=== PATIENT | male | born 1970 | race Two or more races ===

== ENCOUNTER 2025-02-25 19:53 | Inpatient (IN) | payer MEDICAID ==
[~2025-02-25] VITALS: Ht 182.9 cm; Wt 54.7 kg
[2025-02-25 20:00] VITALS: BP 121/77; TEMP 97.5; O2SAT 100
[2025-02-25] MEDS ORDERED: ACETAMINOPHEN 325 MG TABLET PO PRN (23:00)
[2025-02-25] MEDS ORDERED: ONDANSETRON HCL/PF 4 MG/2 ML VIAL IVP PRN (23:00)
[2025-02-25] MEDS ORDERED: MAGNESIUM HYDROXIDE 30 ML UDC PO PRN (23:00)
[2025-02-25] MEDS ORDERED: MAG HYDROX/AL HYDROX/SIMETH 30 ML UDC PO PRN (23:00)
[2025-02-26] MEDS: IV NS 0.9% 1,000 ML IV PRN ×2 (02:29→12:07)
[2025-02-26 06:58] LABS: CALCIUM, SERUM 6.5 mg/dL (8.5-10.1); CREATININE 1.0 mg/dL (0.6-1.3); PHOSPHORUS 2.2 mg/dL (2.5-4.9); PLATELET COUNT (AUTO) 212 K/uL (150-450); RED BLOOD CELL COUNT(AUTO) 2.67 MIL/uL (4.5-6.0); RED CELL DISTRIBUTION WIDTH 12.7 % (11.5-15.0); SODIUM SERUM 133 mmol/L (136-145); UREA NITROGEN, BLOOD 37 mg/dL (7-18); WHITE BLOOD COUNT (AUTO) 8.0 K/uL (4.3-11.0)
[2025-02-26 08:00] VITALS: BP 139/74; TEMP 97.5; O2SAT 100
[2025-02-26] MEDS: FOLIC ACID 1 MG TABLET PO SCH (08:26)
[2025-02-26] MEDS: THIAMINE HCL 100 MG TABLET PO SCH (08:26)
[2025-02-26] MEDS: POTASSIUM CHLORIDE 20 MEQ TAB.PRT.SR PO SCH (10:41)
[2025-02-26] MEDS: NEUTRA PHOS 1 POWD.PACKET PO ONE (12:35)
[2025-02-26 16:00] VITALS: BP_SYST 103; BP_SYST 147; BP_DIAS 74; BP_DIAS 90; TEMP 98.2; O2SAT 100
[2025-02-26 17:23] LABS: ASPARTATE AMINOTRANSFERASE 26.0 U/L (15-37); TOTAL PROTEIN, SERUM 5.3 g/dL (6.4-8.2)
[2025-02-26 17:24] LABS: LDL 40.0 mg/dL (0-99)
[2025-02-26 20:00] VITALS: BP 107/77; TEMP 97.5; O2SAT 99
[2025-02-27 08:00] VITALS: BP 105/68; TEMP 97.4; O2SAT 99
[2025-02-27 16:00] VITALS: BP 85/52; TEMP 97.5; O2SAT 98
== END 2025-02-27 21:26 | disposition home or self-care (01) | DRG 282 ==
LOC: TELE 20:41 → MED 22:52
PROVIDERS: ADMIT Nurse Practitioner Acute Care
DX: K85.20 Alcohol induced acute pancreatitis without necrosis or infection (principal); E87.29 Other acidosis; R62.7 Adult failure to thrive; F10.10 Alcohol abuse, uncomplicated; E87.6 Hypokalemia; E83.42 Hypomagnesemia; Y90.9 Presence of alcohol in blood, level not specified
CPT/HCPCS: 36415; 80048-TC; 80061-TC; 80076-TC; 83690-TC; 83735-TC; 84100-TC; 85025-TC; 87081-TC; 97110-TC; 97530-TC; A4223; G0378; J7030